=== PATIENT | female | born 2000 | race Caucasian/White ===

== ENCOUNTER → 2021-03-14 | Outpatient (CLI) | payer OTHER ==
[2021-03-16 11:11] LABS: PROLACTIN 19.8 ng/mL (4.8-23.3)
[2021-03-20 11:14] LABS: TESTOSTERONE, SERUM 43 ng/dL (13-71)
[2021-03-21 03:07] LABS: FREE INSULIN 31 uU/mL (.); TOTAL INSULIN 31 uU/mL (.)
== END ==
LOC: LAB 11:05
PROVIDERS: Advanced Practice Midwife
DX: N91.2 Amenorrhea, unspecified (principal)
CPT/HCPCS: 36415; 82947; 83001; 83002; 84146; 84402; 84403; 84443; 84702